=== PATIENT | male | born 1940 ===

== ENCOUNTER 2019-11-19 19:59 | Emergency (ER) | payer MEDICARE, OTHER, SELFPAY ==
[2019-11-19 20:05] VITALS: BP 143/86; PULSE 92; RESP 17; TEMP 36.8; O2SAT 96; BMI 24.4
--- NOTE | 2019-11-19 20:19 | W.ED.ABDPA2 ---
HPI - Abdominal Pain General: Chief Complaint: Abdominal Pain Stated Complaint: HERNIA PROBLEMS Time Seen by Provider: 11/19/19 20:16 History of Present Illness: HPI narrative: Patient is a 79-year-old male who comes to the ED with hernia pain. Patient has a past medical history of GERD and hypertension. Has been diagnosed with a right inguinal hernia and is scheduled to see Dr. Krueger on December 02 to evaluate hernia. Patient comes in today because he is having increasing pain in the lower abdomen due to hernia and had 2 episodes of nausea and vomiting as well. He states that his pain right now is mild to moderate and gets worse if he gets up and moves around. Patient has taken Tylenol for pain. Endorses scrotal swelling due to hernia. Here in the ED he denies any fever, chills, current nausea, diarrhea, constipation, dysuria or hematuria. Denies any testicular or scrotal pain. Associated Symptoms: Reports nausea and vomiting; Denies chills, constipation, diarrhea, dysuria, fever(s), hematochezia and hematuria Review of Systems Const: Denies: fever(s), chills or fatigue Eyes: Denies: change in vision or eye discomfort ENMT: Denies: throat pain, odynophagia, nasal discharge or nasal congestion Card: Denies: chest pain, palpitations, edema, swelling of feet/ankles, dyspnea on exertion or orthopnea Resp: Denies: dyspnea, productive cough or non-productive cough GI: Reports: abdominal pain, nausea and vomiting; Denies: diarrhea, constipation or hematochezia : Reports: scrotal swelling; Denies: flank pain, difficulty urinating, dysuria or hematuria Musc: Denies: neck pain, back pain or extremity swelling Skin/Breast: Denies: rash or new lesions Neuro: Denies: headache(s), numbness in extremities or weakness in extremities Physical Exam Const: COMMON NORMALS: no acute distress, patient oriented x3 and alert GENERAL APPEARANCE: cooperative and comfortable HENMT: COMMON NORMALS: normocephalic HEAD & SCALP: normocephalic MOUTH: Normal oral and palatal mucosa present THROAT: posterior oropharynx normal and uvula midline Neck/C-Spine: COMMON NORMALS: supple GENERAL: Yes normal visual inspection Resp: COMMON NORMALS: normal respiratory effort, No retractions, No use of accessory muscles and clear to auscultation bilaterally EFFORT & INSPECTION: Yes able to speak in complete sentences, No tachypneic, No respiratory distress and No labored AUSCULTATION: clear to auscultation bilaterally Cardio: COMMON NORMALS: regular rate, regular rhythm, S1 normal heart sound present, S2 normal heart sound present, No gallops present (Cardio), No clicks present (Cardio), No murmurs present (Cardio) and Peripheral pulses 2+ throughout RATE: regular rate RHYTHM: regular rhythm HEART SOUNDS: S1 normal heart sound present and S2 normal heart sound present PERIPHERAL PULSES: Peripheral pulses 2+ throughout GI: COMMON NORMALS: Normal to inspection, nondistended, normoactive bowel sounds present, Soft to palpation and no masses PALPATION: Yes Soft to palpation and Yes Tenderness to palpation present (GI) Details: RLQ : COMMON NORMALS: Yes no CVA tenderness BLADDER/KIDNEY EXAM: Yes no CVA tenderness SCROTUM: Yes inguinal hernia Inguinal hernia laterality: right and Yes scrotal swelling Scrotal swelling laterality: right Back/Pelvis: COMMON NORMALS: no CVA tenderness Extremity: COMMON NORMALS: normal to inspection and no pedal edema Neuro: COMMON NORMALS: patient oriented x3 SENSORIUM/ORIENTATION: Yes alert GAIT: Yes Normal gait present Skin: COMMON NORMALS: no rashes or lesions noted GENERAL SKIN EXAM: no rashes or lesions noted and dry skin Course Reevaluation(s): Reevaluation #1: Patient was given IV morphine and Ativan and manual reduction of inguinal hernia was performed. Dr. Flores and I performed the reduction. Hernia was successfully reduced. Time: 23:22 Vital Signs: Vital signs: Vital Signs Temperature 98.3 F 11/19/19 20:05 Pulse Rate 54 L 11/19/19 21:42 Respiratory Rate 14 11/19/19 23:10 Blood Pressure 147/87 11/19/19 21:42 Pulse Oximetry 97 11/19/19 21:42 MDM - Abdominal Pain MDM Narrative: Medical decision making narrative: Patient is a 79-year-old male who comes to the ED with hernia pain. Patient has a known chronic right inguinal hernia that he is scheduled to see Dr. Krueger for on December 02. Patient comes the ED with acute right lower abdominal pain from hernia, nausea and vomiting. Patient has right lower quadrant tenderness with scrotal swelling on the right side. CBC, CMP and lipase were all unremarkable. Lactic was 1.7. Ultrasound of the scrotum showed. CT of the abdomen showed right inguinal hernia with small bowel obstruction. Patient was given morphine and Ativan and manual reduction was performed by Dr. Flores and myself and hernia was successfully reduced. I placed an order with case management for him to be referred to general surgery. He currently has an appointment with Dr. Krueger on December 02 and since he has had complications with hernia I think appointment should be sooner. I discussed with patient return to ED precautions with any worsening symptoms. I told patient that case management should be contacting him in the next several days to try prior to schedule an appointment sooner with surgeon. Patient understood and agreed with plan. Lab Data: Attestation: I reviewed the patient's lab results. Labs: Lab Results 11/19/19 11/19/19 11/19/19 Range/Units 20:30 20:30 20:30 WBC 9.9 (4.0-10.0) 10^3/ uL RBC 4.92 (4.1-5.3) 10^6/u L Hgb 16.2 (11.7-16.6) g/dL Hct 49.0 (42.0-52.0) % MCV 99.6 H (80-94) fL MCH 32.9 (28.0-34.0) pg MCHC 33.1 (30.0-36.0) g/dL RDW 12.3 (12.1-15.1) % Plt Count 201 (130-400) 10^3/c mm MPV 10.0 (7.4-10.4) fL Neut % (Auto) 84.4 % Lymph % (Auto) 9.2 % [place] % (Auto) 5.8 % Eos % (Auto) 0.1 % Baso % (Auto) 0.3 % Neut # (Auto) 8.36 H (1.8-7.7) 10^3/u L Lymph # (Auto) 0.9 (0.8-4.8) 10^3/u L [place] # (Auto) 0.6 (0.2-0.9) 10^3/u L Eos # (Auto) 0.0 (0.0-0.8) 10^3/u L Baso # (Auto) 0.0 (0.0-0.1) 10^3/u L Nucleated RBC % (a uto) 0 % Nucleated RBCs # 0.0 /100WBC Sodium 136 (136-145) mmol/L Potassium 4.1 (3.5-5.1) mmol/L Chloride 98 (98-107) mmol/L Carbon Dioxide 26 (22-29) mmol/L Anion Gap 16.1 (5-19) BUN 13 (8-23) mg/dL Creatinine 1.2 (0.7-1.2) mg/dL GFR Calculation Not Reportable Glucose 123 H (65-115) mg/dL Calculated Osmolal ity 280 L (285-295) mOsm/k g Lactic Acid 1.7 (0.5-2.2) mmol/L Calcium 9.3 (8.5-10.5) mg/dL Total Bilirubin 1.2 (0.15-1.2) mg/dL AST 22 (0-40) U/L ALT 10 (0-41) U/L Alkaline Phosphata se 89 (40-130) IU/L Total Protein 8.4 (6.6-8.7) g/dL Albumin 4.4 (3.5-5.2) g/dL Globulin 4.0 (1.3-4.6) g/dL Lipase 18 (13-60) U/L Urine Color (Yellow) Urine Appearance (CLEAR) Urine pH (5-7) Ur Specific Gravit y (1.005-1.030) Urine Protein (Negative) Urine Glucose (UA) (Normal) Urine Ketones (Negative) Urine Blood (Negative) Urine Nitrate (Negative) Urine Bilirubin (Negative) Urine Urobilinogen (Negative) mg/dL Ur Leukocyte Lenka ase (Negative) Urine RBC (0-2) /hpf Urine WBC (0-5) /hpf Ur Squamous Epith Cells (0-5) /hpf Amorphous Sediment Urine Bacteria (NONE) /hpf Urine Mucus /hpf 11/19/19 Range/Units 21:48 WBC (4.0-10.0) 10^3/ uL RBC (4.1-5.3) 10^6/u L Hgb (11.7-16.6) g/dL Hct (42.0-52.0) % MCV (80-94) fL MCH (28.0-34.0) pg MCHC (30.0-36.0) g/dL RDW (12.1-15.1) % Plt Count (130-400) 10^3/c mm MPV (7.4-10.4) fL Neut % (Auto) % Lymph % (Auto) % [place] % (Auto) % Eos % (Auto) % Baso % (Auto) % Neut # (Auto) (1.8-7.7) 10^3/u L Lymph # (Auto) (0.8-4.8) 10^3/u L [place] # (Auto) (0.2-0.9) 10^3/u L Eos # (Auto) (0.0-0.8) 10^3/u L Baso # (Auto) (0.0-0.1) 10^3/u L Nucleated RBC % (a uto) % Nucleated RBCs # /100WBC Sodium (136-145) mmol/L Potassium (3.5-5.1) mmol/L Chloride (98-107) mmol/L Carbon Dioxide (22-29) mmol/L Anion Gap (5-19) BUN (8-23) mg/dL Creatinine (0.7-1.2) mg/dL GFR Calculation Glucose (65-115) mg/dL Calculated Osmolal ity (285-295) mOsm/k g Lactic Acid (0.5-2.2) mmol/L Calcium (8.5-10.5) mg/dL Total Bilirubin (0.15-1.2) mg/dL AST (0-40) U/L ALT (0-41) U/L Alkaline Phosphata se (40-130) IU/L Total Protein (6.6-8.7) g/dL Albumin (3.5-5.2) g/dL Globulin (1.3-4.6) g/dL Lipase (13-60) U/L Urine Color Dark yellow (Yellow) Urine Appearance Clear (CLEAR) Urine pH 5 (5-7) Ur Specific Gravit y 1.030 (1.005-1.030) Urine Protein Neg (Negative) Urine Glucose (UA) Norm (Normal) Urine Ketones Negative (Negative) Urine Blood Neg (Negative) Urine Nitrate Negative (Negative) Urine Bilirubin Neg (Negative) Urine Urobilinogen Norm (Negative) mg/dL Ur Leukocyte Lenka ase Negative (Negative) Urine RBC 0-4 H (0-2) /hpf Urine WBC 0-4 H (0-5) /hpf Ur Squamous Epith Cells 0-4 H (0-5) /hpf Amorphous Sediment Not Reportable Urine Bacteria 1+ H (NONE) /hpf Urine Mucus 2+ /hpf Imaging Data ^: CT Abd/Pel: Attestation: I personally reviewed and interpreted this imaging study as follows: Radiologist's impression: [address] [address] [address] Scan Report Signed with Addenda Patient: Popeye Weber Unit #: [id number] : 1940 Age/Sex: 79 / M ADM Date: 11/19/19 Loc: ER Room/Bed: Attending Dr: Ordering Provider/Ordering MD: Sam Coon Date of Service: 11/19/19 Procedure(s): CT abdomen pelvis w con* [id number] Accession Number(s): [id number] Report Number: [id number]/CT abdomen pelvis w con* [id number] THIS REPORT CONTAINS FINDINGS THAT MAY BE CRITICAL TO PATIENT CARE. The findings were verbally communicated via telephone conference with Sam Coon at 10:38 PM CDT on 11/19/2019. The findings were acknowledged and understood. Radiation Dose CTDIVOL = (mGy): DLP = 1029.45 (mGy-cm) Addendum Dictated By: Dav Escobedo MD Addendum Signed By: Dav Escobedo MD Signed Date/Time: 0 2240 Addendum Cosigned By: PROCEDURE INFORMATION: Exam: CT Abdomen And Pelvis With Contrast Exam date and time: 11/19/2019 9:47 PM Age: 79 years old Clinical indication: Nausea and vomiting; Abdominal pain; Generalized; Prior surgery; Surgery type: Hernia; Additional info: Lower abdominal pain and hernia TECHNIQUE: Imaging protocol: Computed tomography of the abdomen and pelvis with intravenous contrast. Radiation optimization: All CT scans at this facility use at least one of these dose optimization techniques: automated exposure control; mA and/or kV adjustment per patient size (includes targeted exams where dose is matched to clinical indication); or iterative reconstruction. Contrast material: VISI; Contrast volume: 95 ml; Contrast route: INTRAVENOUS (IV); COMPARISON: CT Abdomen/Pelvis w IV* [id number] 09/14/2018 3:16 PM RADIATION DOSE METRICS: Total DLP (mGy-cm): 1029.45 FINDINGS: Lungs: Patchy bilateral lower lobe airspace opacities suggestive of pneumonic infiltrates. Heart: Cardiomegaly. Liver: Normal. No mass. Gallbladder and bile ducts: Cholelithiasis. Pancreas: Normal. No ductal dilation. Spleen: Normal. No splenomegaly. Adrenals: Normal. No mass. Kidneys and ureters: Bilateral benign renal cysts, negative for follow-up advised. Stomach and bowel: Diverticulosis without diverticulitis. Small bowel dilation to 3.5cm with prominent fluid with a right inguinal hernia containing bowel which is suspicious for the source of an evolving obstruction. Appendix: No evidence of appendicitis. Intraperitoneal space: Unremarkable. No free air. No significant fluid collection. Vasculature: Unremarkable. No abdominal aortic aneurysm. Lymph nodes: Unremarkable. No enlarged lymph nodes. Bladder: Unremarkable as visualized. Reproductive: Unremarkable as visualized. Bones/joints: Unremarkable. No acute fracture. Soft tissues: Unremarkable. CT/CT abdomen pelvis w con* [id number] IMPRESSION: 1. Right inguinal hernia containing bowel with associated bowel dilation with fluid levels likely reflecting obstruction secondary to the hernia, please correlate for reduction. 2. Patchy bilateral lower lobe airspace opacities suggestive of pneumonic infiltrates. 3. Cardiomegaly. 4. Cholelithiasis. 5. Bilateral benign renal cysts, negative for follow-up advised. 6. Diverticulosis without diverticulitis. COMMENTS: Consistent with the [employer]'s Incidental Findings Committee white paper (J Am Anil Radiol 2018): Any incidental renal lesion less than 1 cm or classified as too small to characterize, or any incidental cystic renal lesion characterized as simple-appearing, is likely benign. No follow-up imaging is recommended for these lesions per consensus recommendations based on imaging criteria. Radiation Dose CTDIVOL = (mGy): DLP = 1029.45 (mGy-cm) Dictated By: Dav Escobedo MD Signed By: Dav Escobedo MD Signed Date/Time: 11/19/192238 DD/ 35 Discharge Plan Discharge Patient Disposition: Home Clinical Impression: Reducible right inguinal hernia Condition: Stable Prescriptions: No Action Tylenol 325 mg Tablet 325 mg PO QID PRN (Reason: Pain) RF: 0 levetiracetam 500 mg tablet 500 mg PO BID RF: 0 omeprazole 40 mg capsule,delayed release(DR/EC) 40 mg PO DAILY RF: 0 Aspirin Low Dose 81 mg Tablet,Delayed Release (Dr/Ec) 81 mg PO DAILY RF: 0 furosemide See Rx Instructions .ROUTE .COMPLEX RF: 0 metoprolol succinate See Rx Instructions .ROUTE .COMPLEX RF: 0 potassium chloride See Rx Instructions .ROUTE .COMPLEX RF: 0 Discharge Orders: Discharge Order (Routine); Ordered 11/19/19 Ordered By: Sam Coon Referrals: Chad Belcher Jr, MD [Primary Care Provider] - Discharge Diet: Regular Discharge Activity: Increase activity as tolerated Patient Instructions: Inguinal Hernia (ED) Activity Restrictions/Additional Instructions: Follow-up with PCP as directed in7-10 days. Case management should be contacting you in the next several days to try to set up an earlier appointment to see general surgeon for hernia repair. Continue taking all home medications as prescribed. Return to the ER or your medical provider if condition worsens. Please read and understand discharge instructions. If any questions, please ask. Coding Level of Care Code ED Plating Operator for Elo Fwel Exam Comprehensive
[2019-11-19] MEDS: ondansetron 2 mg/ML SDV 2 mL 4 MG IVP (20:34)
[2019-11-19 20:36] LABS: Basophils % 0.3 %; Eosinophils % 0.1 %; Hemoglobin 16.2 g/dL (11.7-16.6); Lymphocytes # 0.9 10^3/uL (0.8-4.8); Lymphocytes % 9.2 %; Mean Corpuscular HGB Conc 33.1 g/dL (30.0-36.0); Mean Corpuscular Hemoglobin 32.9 pg (28.0-34.0); Mean Corpuscular Volume 99.6 fL (80-94); Monocytes # 0.6 10^3/uL (0.2-0.9); Monocytes % 5.8 %; Neutrophils # 8.36 10^3/uL (1.8-7.7); Neutrophils % 84.4 %; Nucleated Red Blood Cells % 0 %; Platelet Count 201 10^3/cmm (130-400); Red Blood Count 4.92 10^6/uL (4.1-5.3); Red Cell Distribution Width 12.3 % (12.1-15.1); White Blood Count 9.9 10^3/uL (4.0-10.0)
--- NOTE | 2019-11-19 20:49 | CTR_ITS ---
PROCEDURE INFORMATION: Exam: CT Abdomen And Pelvis With Contrast Exam date and time: 11/19/2019 9:47 PM Age: 79 years old Clinical indication: Nausea and vomiting; Abdominal pain; Generalized; Prior surgery; Surgery type: Hernia; Additional info: Lower abdominal pain and hernia TECHNIQUE: Imaging protocol: Computed tomography of the abdomen and pelvis with intravenous contrast. Radiation optimization: All CT scans at this facility use at least one of these dose optimization techniques: automated exposure control; mA and/or kV adjustment per patient size (includes targeted exams where dose is matched to clinical indication); or iterative reconstruction. Contrast material: VISI; Contrast volume: 95 ml; Contrast route: INTRAVENOUS (IV); COMPARISON: CT Abdomen/Pelvis w IV* [id number] 09/14/2018 3:16 PM RADIATION DOSE METRICS: Total DLP (mGy-cm): 1029.45 FINDINGS: Lungs: Patchy bilateral lower lobe airspace opacities suggestive of pneumonic infiltrates. Heart: Cardiomegaly. Liver: Normal. No mass. Gallbladder and bile ducts: Cholelithiasis. Pancreas: Normal. No ductal dilation. Spleen: Normal. No splenomegaly. Adrenals: Normal. No mass. Kidneys and ureters: Bilateral benign renal cysts, negative for follow-up advised. Stomach and bowel: Diverticulosis without diverticulitis. Small bowel dilation to 3.5cm with prominent fluid with a right inguinal hernia containing bowel which is suspicious for the source of an evolving obstruction. Appendix: No evidence of appendicitis. Intraperitoneal space: Unremarkable. No free air. No significant fluid collection. Vasculature: Unremarkable. No abdominal aortic aneurysm. Lymph nodes: Unremarkable. No enlarged lymph nodes. Bladder: Unremarkable as visualized. Reproductive: Unremarkable as visualized. Bones/joints: Unremarkable. No acute fracture. Soft tissues: Unremarkable. CT/CT abdomen pelvis w con* [id number] IMPRESSION: 1. Right inguinal hernia containing bowel with associated bowel dilation with fluid levels likely reflecting obstruction secondary to the hernia, please correlate for reduction. 2. Patchy bilateral lower lobe airspace opacities suggestive of pneumonic infiltrates. 3. Cardiomegaly. 4. Cholelithiasis. 5. Bilateral benign renal cysts, negative for follow-up advised. 6. Diverticulosis without diverticulitis. COMMENTS: Consistent with the [employer]'s Incidental Findings Committee white paper (J Am Anil Radiol 2018): Any incidental renal lesion less than 1 cm or classified as too small to characterize, or any incidental cystic renal lesion characterized as simple-appearing, is likely benign. No follow-up imaging is recommended for these lesions per consensus recommendations based on imaging criteria. Radiation Dose CTDIVOL = (mGy): DLP = 1029.45 (mGy-cm)
[2019-11-19 20:59] LABS: Alanine Aminotransferase 10 U/L (0-41); Albumin Level 4.4 g/dL (3.5-5.2); Alkaline Phosphatase 89 IU/L (40-130); Anion Gap 16.1 (5-19); Aspartate Amino Transferase 22 U/L (0-40); Blood Urea Nitrogen 13 mg/dL (8-23); Calcium 9.3 mg/dL (8.5-10.5); Carbon Dioxide 26 mmol/L (22-29); Chloride 98 mmol/L (98-107); Glucose 123 mg/dL (65-115); Lipase 18 U/L (13-60); Osmolality Calculated 280 mOsm/kg (285-295); Potassium 4.1 mmol/L (3.5-5.1); Sodium 136 mmol/L (136-145); Total Bilirubin 1.2 mg/dL (0.15-1.2); Total Protein 8.4 g/dL (6.6-8.7)
[2019-11-19 21:00] LABS: Lactic Sepsis W/Reflex 1.7 mmol/L (0.5-2.2)
[2019-11-19 21:42] VITALS: BP 147/87; PULSE 54; RESP 16; O2SAT 97
[2019-11-19 22:09] LABS: Bilirubin Urine Neg (Negative); Blood Urine Neg (Negative); Glucose Urine UA Norm (Normal); Ketones Urine Negative (Negative); Leukocyte Esterase Urine Negative (Negative); Nitrate Urine Negative (Negative); Protein Urine Neg (Negative); Urine Appearance Clear (CLEAR); Urine Color Dark Yellow (Yellow); Urobilinogen Urine Norm (Negative); pH Urine 5 (5-7)
[2019-11-19] MEDS: iodixanol 320 mg/mL 100mL Btl IV (22:21)
[2019-11-19 22:34] LABS: Bacteria Urine 1+ /hpf; Mucus Urine 2+ /hpf; RBC Urine 0-4 /hpf (0-2); Squamous Epithelial Cell Urine 0-4 /hpf (0-5); WBC Urine 0-4 /hpf (0-5)
[2019-11-19 23:10] VITALS: RESP 14
[2019-11-19] MEDS: LORazepam 2 mg/mL INJ 1 mL 1 MG IVP (23:10)
[2019-11-19] MEDS: morphine 4 mg/mL SDV 1 mL IVP (23:10)
[2019-11-19 23:46] VITALS: BP 115/65; PULSE 84; RESP 16; O2SAT 92
--- NOTE | 2019-11-20 10:02 | DCPLANNER ---
manager books had message to schedule a follow up appointment for patient with Dr. Krueger. Patient has a follow up appointment scheduled for later in November, outsole caser was asked to call Dr. Resendez office to see if appointment could be moved up any sooner. manager books spoke with Kathya appointment was moved up to Monday, November 26, 2019 at 2:[address] Krueger. Clinic will call patient with appointment information.
--- NOTE | 2019-12-04 13:26 | DCPLANNER ---
Patient had an appointment scheduled for 11.26.[address] Krueger - patient did attend the appointment.
== END 2019-11-19 23:58 | disposition home or self-care (01) ==
PROVIDERS: Emergency Provider Physician Assistant; PCP Family Medicine
DX: K40.90 Unilateral inguinal hernia, without obstruction or gangrene, not specified as recurrent (principal); Z79.82 Long term (current) use of aspirin
CPT/HCPCS: 12345; 74177; 80053; 81001; 83605; 83690; 85025; 96374; 96375; 99283; J2060; J2270; J2405; Q9967

== ENCOUNTER → 2019-12-02 08:08 | Outpatient (BNVA) | payer MEDICARE, OTHER, SELFPAY | PROVIDERS: PCP Family Medicine; Visit Provider Surgery | DX: Z11.59 Encounter for screening for other viral diseases (principal) | CPT/HCPCS: 87635 ==

== ENCOUNTER 2019-12-05 06:14 | Day surgery (SDC) | payer MEDICARE, OTHER, SELFPAY ==
[2019-12-04 12:24] VITALS: BMI 22.7
[2019-12-05] VITALS (9 sets, daily range): BP systolic 112–144; BP diastolic 77–98; PULSE 68–83; RESP 12–20; TEMP 36.1–36.9; O2SAT 95–100
[2019-12-05] MEDS: sodium chloride 0.9% 1,000 ML 30 ML IV (06:48)
--- NOTE | 2019-12-05 06:49 | ECG_ITS ---
[facility] Test Date: 2019-12-05 Pat Name: Popeye Weber Department: Room: Gender: Male General Assignment Reporter: : 1940 Requested By: Ana Ramirez Order Number: [id number] Yazan MD: Zainab Burnette M.D. Measurements Intervals [place] Rate: 70 P: MN: -1 QRS: -42 QRSD: 148 T: 3 QT: 422 QTc: 456 Interpretive Statements ATRIAL FIBRILLATION MARKED LEFT AXIS DEVIATION [QRS AXIS < -30] RIGHT BUNDLE BRANCH BLOCK [120+ ms QRS DURATION, UPRIGHT V1, 40+ ms S IN I/aVL/V4/V5/V6] Compared to ECG 09/14/2018 16:08:54 No significant changes Electronically Signed On 12-05-2019 19:27:06 CDT by Zainab Burnette M.D. [id number]
--- NOTE | 2019-12-05 07:03 | ANES.PREANE2 ---
Pre-Anesthetic Assessment Pre-Anesthetic Assessment: Height/Weight: Height 1.8 m Weight 73.936 kg Temp Pulse Resp BP Pulse Ox 98.4 F 68 18 122/80 98 12/05/19 06:34 12/05/19 06:34 12/05/19 06:34 12/05/19 06:34 12/05/19 06:34 Preop Diagnosis: inguinal hernia Proposed Procedure: Operation Date: 12/05/19 08:05 Proposed Procedures p Inguinal Hernia Repair right(Right) - Manjinder Krueger MD Familial anesthetic complications: none Was Beta Eunice taken within 24 hours: Yes (? patient is unable to state if he took metoprolol I took what they told me to take ) Last intake: Intake Last Liquid Date 12/04/19 Last Liquid Time 22:00 Last Solid Date 12/04/19 Last Solid Time 13:00 Social: Social History: No alcohol and No tobacco Exam: Pre-Anes Outpt Exam: alert, oriented x 3, clear to auscultation bilaterally and regular rate & rhythm Airway: MP: 4 Dentition: Chipped and Other (poor dentition, rotten and black) Additional comments: full hernandez CV/HEM: CV/HEM: Afib (not on blood thinners d/t complications with bleeding, but I Don't remember where ) and CHF Comments: 2017 echo showed EF 28% and no significant ischemia 11/22 repeat eacho showed mildly decreased LV function, EF 54%, mild PVR, mod TVR, trave mvr, but no pulm HTN ? 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
--- NOTE | 2019-12-05 08:41 | W.PM.OPSUD ---
Surgery/Procedure H&P Update DATE OF PROCEDURE: December 05, 2019 DATE H&P PERFORMED: 11/26/19 H&P UPDATE INFORMATION: No changes to prior documentation PREOP DIAGNOSIS: inguinal hernia PLANNED PROCEDURE: Operation Date: 12/05/19 08:05 Proposed Procedures p Inguinal Hernia Repair right(Right) - Manjinder Krueger MD
--- NOTE | 2019-12-05 10:45 | P.OP_ITS ---
Operative Report Date of procedure: December 05, 2019 Pre-op Diagnosis: Incarcerated right inguinal hernia. Post-op diagnosis: same (Indirect.) Procedure Done: Reduction and repair of incarcerated right inguinal hernia. Pathology: none sent Surgeon: Manjinder Krueger Anesthesia: General Estimated blood loss (mL): 10 Complications: None. Condition: stable Disposition: PACU Procedure: The patient was brought to the operating room and was placed in a supine position on the operating room table. A monitored anesthetic was induced. The right inguinal region was prepped and draped in a sterile fashion. A combination of 1% lidocaine and 0.5% bupivacaine with 1-200,000 parts epinephrine was used for local anesthesia throughout the procedure. A transverse incision was carried out above the level of the pubic tubercle. Cautery was used to divide the subcutaneous tissue down to the external oblique aponeurosis which was incised in parallel with its fibers over the inguinal canal. The spermatic cord was looped with a Ehsan drain. An indirect hernia was found at the internal ring, with a hernia sac extending all the way into the right hemiscrotum. The sac was mobilized into the incision and was eventually opened to facilitate dissection. The bowel that had been incarcerated in the sac was reduced and then the sac was stick tied with a suture of 2-0 Vicryl, with the excess sac being excised. An extra-large mesh plug was used to hold the remaining hernia sac in a reduced position and was held in place with multiple suturesof 0 Prolene that were used to connect the conjoined area media lly to the reflecting edge of Poupart's ligament laterally. The presence of the large indirect hernia had obliterated almost the entire inguinal canal floor. Multiple sutures were placed all the way down to the tubercle, reforming the posterior wall of the inguinal canal. The onlay patch was anchored at the tubercle with a suture of 0 Prolene and was laid along the inguinal canal floor, allowing the cord structures to pass through the precut hole in the mesh. The two wings of mesh were sewn to each other above the level of the internal ring with a suture of 0 Prolene. The external oblique aponeurosis was closed over the top of the cord using a running suture of 3-0 Vicryl. The wound was irrigated with saline. The subcutaneous tissue was brought together with a simple suture of 3-0 Vicryl and the skin was approximated using a running subcuticular suture of 3-0 Vicryl. Benzoin and Steri-Strips were placed over the incision and a sterile bandage followed. The patient was taken to the recovery area in stable condition postoperatively.
--- NOTE | 2019-12-05 12:00 | ANE.PACU2 ---
Inpatient post-anesthesia follow up: Airway intact: Yes Vital signs: Temperature 97 F Pulse Rate 73 Respiratory Rate 18 Blood Pressure 115/77 Pulse Oximetry 95 Oxygen Delivery Me thod Room Air Oxygen Flow Rate 8 Fraction of Inspir ed Oxygen Hydration adequate: Yes Nausea and vomiting: No Pain level: 3 Mental status: Baseline
== END 2019-12-05 12:07 | disposition home or self-care (01) ==
PROVIDERS: PCP Family Medicine; Visit Provider Surgery
PROC: (CPT 49507; principal; 2019-12-05 08:05)
DX: K40.30 Unilateral inguinal hernia, with obstruction, without gangrene, not specified as recurrent (principal); I48.91 Unspecified atrial fibrillation; I11.0 Hypertensive heart disease with heart failure; I50.9 Heart failure, unspecified; Z86.73 Personal history of transient ischemic attack (TIA), and cerebral infarction without residual deficits; N40.0 Benign prostatic hyperplasia without lower urinary tract symptoms; M19.90 Unspecified osteoarthritis, unspecified site; Z79.82 Long term (current) use of aspirin
CPT/HCPCS: 49507; 12345; 93005; J0690; J1100; J1885; J2405; J2704; J2710; J3010; J3490; J7030

== ENCOUNTER 2021-02-08 08:27 | Outpatient (CLI) | payer MEDICARE, OTHER, SELFPAY ==
--- NOTE | 2021-02-08 08:49 | FL_ITS ---
WS: [id number] The procedure was performed in conjunction with speech therapy service. Exam: FL barium swallow modifd [id number] Date/Time of Exam: 02/08/2021 8:50 AM Reason For Exam: Other dysphagia Fluoroscopy time: minutes The patient experienced significant pooling of all consistencies of barium foodstuffs in the vallecul a and perform during the exam. There is no sign of aspiration or penetration. The ingested barium tab let lodged in the vallecula initially but was cleared with the several swallowing attempts with the t hin liquid barium. Swallowing function at the level of oropharynx was otherwise normal. FL/FL barium swallow modifd [id number] IMPRESSION: 1. Significant pooling into the vallecula and piriform sinuses with all consist encies of barium mixture foodstuffs. 2. No penetration or aspiration was observed. 3. The patient experienced difficulty swallowing the barium tablet. Specificall y the tablet lodged into the vallecula but was cleared with several swallows of thin liquid barium solution. A separate report of findings and recommendations will follow from the speech t herapy department.
== END 2021-02-08 08:28 | disposition home or self-care (01) ==
LOC: RAD 08:35
PROVIDERS: PCP Nurse Practitioner Family; Visit Provider Nurse Practitioner Family
DX: R13.10 Dysphagia, unspecified (principal)
CPT/HCPCS: 74230; 92611